=== PATIENT | female | born 1945 | race Caucasian/White ===

== ENCOUNTER 2022-10-26 17:30 | Outpatient (RCR) | payer SELFPAY | END 2022-10-26 23:59 | LOC: NS 17:30 | DX: Z71.3 Dietary counseling and surveillance (principal) ==

== ENCOUNTER 2023-07-30 11:00 | Outpatient (RCR) | payer MEDICARE, SELFPAY ==
--- NOTE | 2023-06-15 16:10 | HP.PTEVAL_ITS ---
Patient's Visit Information Visit Information Visit Information: ADRIANA TAPIA is a 77 year old F referred to Physical Therapy by SARAHI CORONEL with a diagnosis of Cervicalgia, dorsalgia. Date of Evaluation: 06/11/23 Physical Therapist: Micah Espinoza DPT Visit Plan Frequency: 1-2x /Week Duration: 6 Weeks Plan: 1) cervical joint mobilizations both PAs and UPA for rotation. 2) UT and levator scap stretching 3) cervical retraction and PT assisted rectraction 4) scapular strengthening. Subjective Subjective: Pt. is here today for her initial evaluation with diagnosis of cervicalgia and dorsalgia. Pt. reports having increased pain for a number of years. She has been going to Pt for massage with some good success. Pt. reports increased neck pain with rotation and looking up. She reports falling asleep and walking up with intense pain, but has already started to alleviate. She is still having issues both with ROM and reports of muscle tightness. Pt. denies N/T in either UE. No myotomal weakness noted. No changes in vision. Pt. has had xrays but not in a while. Xrays showed a straightening of her cervical lordosis. Pt. is sleeping okay, but has most of her issues during the day. 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 Pt. is hopeful to reduce symptoms in order to get back to all recreational activities without limitation. Pain B side of cervical spine: Pain Intensity (Out of 10): 2 Pain Intensity Range: 0 and 3 Objective Objective: POSTURE: Pt. has forward head, and increased thoracic kyphosis. Pt. is able to correct, but difficulty maintaining. PALPATION: Pt. has tenderness throughout B cervical erector spinae. Pt. has tenderness in B UT region as well. NEURO: normal throughout, normal DTR normal sensation. ROM: cervical spine: flexion mod loss increase NW, ext mod loss increase NW, rotation mod loss bilat increase NW, SB mod loss bilat increase NW. Pt. reports greatest amount of tightness with B cervical rotation and with extension. MMT: 5-/5 throughout BUEs, 5/5 cervical iso testing. Special Tests C/S Radiculapathy - Left Spurlings: Negative C/S Radiculapathy - Right Spurlings: Negative C/S Radiculapathy - Left Cervical distraction: Negative C/S Radiculapathy - Right Cervical distraction: Negative Cervical Sitting: Protrusion - Mechanical Response: No effect Cervical Sitting: Protrusion - Symptoms During Testing: No effect Cervical Sitting: Protrusion - Symptoms After Testing: No effect Cervical Sitting: Retraction - Mechanical Response: No effect Cervical Sitting: Retraction - Symptoms During Testing: No effect Cervical Sitting: Retraction - Symptoms After Testing: No effect Cervical Sitting: Retraction-Extension - Mechanical Response: No effect Cerv Sitting: Retraction-Extension - Symptoms During Testing: No effect Cerv Sitting: Retraction-Extension - Symptoms After Testing: No effect Cervical Sitting: Sidebend Right - Mechanical Response: No effect Cervical Sitting: Sidebend Right - Symptoms During Testing: Increases Cervical Sitting: Sidebend Right - Symptoms After Testing: No worse Cervical Sitting: Sidebend Left - Mechanical Response: No effect Cervical Sitting: Sidebend Left - Symptoms During Testing: Increases Cervical Sitting: Sidebend Left - Symptoms After Testing: No worse Cervical Sitting: Rotation Right - Mechanical Response: No effect Cervical Sitting: Rotation Right - Symptoms During Testing: Increases Cervical Sitting: Rotation Right - Symptoms After Testing: No worse Cervical Sitting: Rotation Left - Mechanical Response: No effect Cervical Sitting: Rotation Left - Symptoms During Testing: Increases Cervical Sitting: Rotation Left - Symptoms After Testing: No worse Cervical Sitting: Flexion - Mechanical Response: No effect Cervical Sitting: Flexion - Symptoms During Testing: Increases Cervical Sitting: Flexion - Symptoms After Testing: No worse Cervical Lying: Retraction - Mechanical Response: No effect Cervical Lying: Retraction - Symptoms During Testing: Increases Cervical Lying: Retraction - Symptoms After Testing: No worse Cervical Lying: Extension - Mechanical Response: No effect Cervical Lying: Extension - Symptoms During Testing: Increases Cervical Lying: Extension - Symptoms After Testing: No worse Balance/Special Test Scores Oswestry Neck Score: 20 Goals Goal 1:: LTG: pt. to be I with HEP for cervical ROM and scapular strengthening. Goal Time Frame: 2-4 Weeks Goal 2:: STG: pt. to have increased cervical ROM by 25% in all directions. Goal Time Frame: 2-4 Weeks Goal 3:: LTG: pt. to complete all cervical rotation during driving without limitations allowing for safe driving. Goal Time Frame: 4-6 Weeks Goal 4:: LTG: pt. to be able to maintain proper posture of thoracic and cervical spine throughout PT session. Goal Time Frame: 4-6 Weeks Rehabilitation Potential Physical Therapy Diagnosis: Pt. has signs and symptoms consistent with cervicalgia/dorsalgia. Pt. has signs and symptoms consistent mostly with hypomobility of her cervical spine. I would like to work on cervical and thoracic joint mobility as well as stretching the corresponding soft tissue. Pt. would benefit from PT to address the above limitations. Rehabilitation Potential: Good Anticipated Interventions Patient/Client Instruction: Educate patient on: Condition, Plan of Care, Risk Factors and Benefits of Fitness Program For the Purpose of:: To foster healthy habits, To improve decision making, To facilitate caregiver knowledge, To improve self management, To prevent re-injury and To improve ability to perform tasks related to life management Therapeutic Exercise to Include: Strength training, Power training, Body mechanics, Postural training, Flexibilty training, Passive ROM, Active ROM, Grant Exercises and Scapular Strength/Stabilization For the Purpose of:: To decrease pain, To increase ROM, To improve nutrient delivery to tissue, To increase oxygenation perfusion, To improve muscle performance and motor function, To improve health of tissue, To decrease soft tissue restriction and To increase flexibility/ROM Manual Therapy Techniques to Include: Mobilization and Passive ROM For the Purpose of:: To decrease pain, To decrease swelling/inflammation, To increase ROM, To improve nutrient delivery to tissue, To increase oxygenation perfusion and To improve muscle performance and motor function Text: Thank you for the opportunity to evaluate your patient. For Medicare and Medicare HMO plans, please review the plan of care and approve it. It will need to be FAXED BACK to us at [phone] for Medicare purposes. For Medicare only, by signing this I certify the plan of care. Please let me know if there are questions or concerns regarding this plan of care. Physician Signature: Date:
--- NOTE | 2023-07-09 11:22 | HP.PTREVAL_ITS ---
Re-Evaluation Intro: SARAHI CORONEL, It has been my pleasure to treat ADRIANA TAPIA over the last 5 visits for Cervicalgia, dorsalgia. Please see the progress note below for an update on the physical therapy plan of care! Subjective Subjective: Pt reports some mild soreness in the L side of her neck, has been doing her HEP as much as possible. Objective Objective/Function: ROM: cervical - R rotation 100%, L rotation 90% with stretch, 100% flex, 80% ext, L LSB 50%, R LSB 75% shoulder - WNL POSTURE: slight FHP, introduced pec stretch HEP: added cervical rotation with OP, seated pec stretch, UT active release >Pt has demo'd improvements with tolerance and understanding of HEP, pt to trial ex/stretches on her own for a few weeks and then will come back for re- assessment of sxs and progress ex as needed. Plan Plan Plan: *Pt to come back in 3 weeks and check in with HEP and severity of exercises 1) cervical joint mobilizations both PAs and UPA for rotation. 2) UT and levator scap stretching 3) cervical retraction and PT assisted rectraction 4) scapular strengthening. Balance/Gait/Functional tests Balance/Special Test Scores Oswestry Neck Score: 20 Goals Goals Goal 1:: LTG: pt. to be I with HEP for cervical ROM and scapular strengthening. Goal Time Frame: 2-4 Weeks Goal Progress: Goal Met Goal 2:: STG: pt. to have increased cervical ROM by 25% in all directions. Goal Time Frame: 2-4 Weeks Goal Progress: Progressing Goal 3:: LTG: pt. to complete all cervical rotation during driving without limitations allowing for safe driving. Goal Time Frame: 4-6 Weeks Goal Progress: Goal Met Goal 4:: LTG: pt. to be able to maintain proper posture of thoracic and cervical spine throughout PT session. Goal Time Frame: 4-6 Weeks Goal Progress: Goal Met Anticipated Interventions Anticipated Interventions Patient/Client Instruction: Educate patient on: Condition, Plan of Care, Risk Factors and Benefits of Fitness Program For the Purpose of:: To foster healthy habits, To improve decision making, To facilitate caregiver knowledge, To improve self management, To prevent re-injury and To improve ability to perform tasks related to life management Therapeutic Exercise to Include: Strength training, Power training, Body mechanics, Postural training, Flexibilty training, Passive ROM, Active ROM, Grant Exercises and Scapular Strength/Stabilization For the Purpose of:: To decrease pain, To increase ROM, To improve nutrient delivery to tissue, To increase oxygenation perfusion, To improve muscle performance and motor function, To improve health of tissue, To decrease soft tissue restriction and To increase flexibility/ROM Manual Therapy Techniques to Include: Mobilization and Passive ROM For the Purpose of:: To decrease pain, To decrease swelling/inflammation, To increase ROM, To improve nutrient delivery to tissue, To increase oxygenation perfusion and To improve muscle performance and motor function Re-Evaluation Ending Re-evaluation ending: Please do not hesitate to contact me at [phone] by phone or if you have questions or concerns regarding this new plan of care! Sincerely, Micah Espinoza DPT
== END 2023-07-30 19:00 | disposition home or self-care (01) ==
LOC: PT 11:00
PROVIDERS: PCP Internal Medicine
DX: M54.2 Cervicalgia (principal)
CPT/HCPCS: 97110; 97140; 97161; 97530

== ENCOUNTER → 2024-01-13 | Outpatient (CLI) | payer MEDICARE, SELFPAY ==
--- NOTE | 2024-01-13 09:22 | BI_ITS ---
MAMMOGRAPHY - BILATERAL SCREENING REASON FOR EXAM: Female, 78 years old. Routine annual screening examination. PERTINENT HISTORY: Mother with breast cancer. TECHNIQUE: Digital bilateral breast keren (3D mammographic acquisition) in the CC and MLO projections. 2-D mediolateral oblique (MLO) and craniocaudad (CC) views of both breasts were obtained. CAD: Full Field Digital Mammography with Computer Added Detection was performed. COMPARISON: Comparison is made with prior outside examination January 05, 2023. FINDINGS: Breast Composition: There are scattered areas of fibroglandular density. There are no dominant masses or suspicious calcifications. No other significant abnormalities are identified. There has been no significant change since the prior study. BI/SCRN MAMM (CAD)W/KEREN BILAT IMPRESSION: Stable bilateral screening mammogram. Yearly follow-up mammogram recommended. (A) ASSESSMENT CATEGORY: BIRADS Category 1: Negative. A letter regarding these results will be sent to the patient by the facility within 30 days. Approximately 10% of breast cancers are not detected by mammography. A normal mammogram should not delay biopsy of a clinically suspicious abnormality. [id number] Electronically Signed: Mick Garber MD at 10:15 EDT ,
== END | disposition home or self-care (01) ==
LOC: OPBI 09:22
PROVIDERS: PCP Internal Medicine; Referring Provider Internal Medicine; Visit Provider Internal Medicine
DX: Z12.31 Encounter for screening mammogram for malignant neoplasm of breast (principal)
CPT/HCPCS: 77063; 77067

== ENCOUNTER 2024-06-05 10:30 | Outpatient (RCR) | payer MEDICARE, SELFPAY ==
--- NOTE | 2024-05-03 13:44 | HP.PTEVAL ---
Patient's Visit Information Visit Information Visit Information: ADRIANA TAPIA is a 78 year old F referred to Physical Therapy by Dr. Lo Ray MD with a diagnosis of ARTHRITS R HIP, NUMBNESS RLE AND WEAKNESS RLE. Date of Evaluation: 05/03/24 Physical Therapist: Karen Cueva, PT, Cert MDT Visit Plan Frequency: 2x /Week Duration: 4-6 Weeks Plan: PATIENT HAS ADHD AND NEEDS WRITTEN HEP INSTRUCTIONS. FOCUS ON CORE AND MICHAEL HIP (R>L) STRENGTH AND STABILITY ALONG WITH HIP (R>L) MOBILITY WITH GENTLE STRETCHING IN REDUCED WEIGHTBEARING ENVIRONMENT AND TRACTION IN THE WATER. KEEP HEP IN COMFORTABLE RANGE AND INTENSITY. Subjective Subjective: Work/Leisure: RETIRED. Present symptoms: R HIP PAIN. MICHAEL LOW BACK PAIN. INTERMITTENT R THIGH AND LEG PAIN. DENIES L THIGH AND LEG PAIN. CONSTANT MICHAEL FOOT TINGLING THAT PATIENT RELATES TO NEUROPATHY AND PATIENT DENIES MICHAEL LE NUMBNESS AND TINGLING OTHERWISE. Present since: END OF JAN 2024 OR MAYBE DEC 2023 Pain Scale: WORST 8/10, LEAST 0/10 Currently: 0/10 Is it getting better, worse or staying the same: GETTING WORSE Commenced as a result of: NO APPARENT REASON Symptoms at onset: R LEG WEAKNESS STARTED - DRAGGING R LEG WHILE WALKING Worse: WEIGHT BEARING ON R LE, TURNING IN BED, GETTING INTO THE CAR, PUTTING R SHOE/SOCK ON, WALKING BARE FOOT, RISING FROM SITTING, STANDING ON CEMENT. PATIENT REPORTS TWO WEEKS AGO WHEN SHE STARTED TRYING EX'S HER DAUGHTER GAVE HER HER BACK STARTED HURTING AND THEN SHE COULD BARELY GET AROUND - SHE DESCRIBES A PIRIFORMIS TYPE STRETCH. Better: SIT DOWN - GET OFF OF IT. ANTI-INFLAMMATORY - TYLONOL ARTHRITIS Disturbed sleep: YES Previous history/Previous treatment: NO R HIP SURGERY. NO R HIP INJECTIONS. PATIENT DENIES ANY HISTORY OF R LE PROBLEMS PRIOR TO THE fall. PATIENT REPORTS HISTORY OF CHRONIC LOW BACK PAIN TREATED WITH MASSAGE AND ELECTRICAL STIM WITH A PT EVERY TWO WEEKS FOR 8 YEARS. NO LOW BACK SURGERY OR INJECTIONS. Treatment this episode: NO TREAMENT. HAS HAD CONSULTS WITH DR. KATZ, A FRAME TABLE OPERATOR IN [place], DR RAY. CONSULT PENDING WITH DR. TEMPLE WEDNESDAY AND ANOTHER DOCTOR BUT SHE INS'T SURE WHAT KIND OF DOCTOR. Coughing/sneezing/straining: PATIENT DENIES INCREASED PAIN WITH COUGHING AND SNEEZING. Gait: USING CANE AT ALL TIMES NOW. ONE STEP INTO HOUSE. LIV[facility] IN [facility]. Bowel or Bladder Dysfunction: WEARS A PANTY LINER FOR URINARY LEAKING. Accidents: NO Unexplained weight loss: NO Imaging: NCT - NORMAL PER PATIENT REPORT. NO MRI. R HIP X-RAY SHOWING CONSIDERABLE ARTHRITS COMPARED TO THE L HIP PER PATIENT REPORT. PATIENT DOES NOT RECALL HAVING LOW BACK X-RAYS. PMH/Recent major surgery: NEUROPATHY. CHRONIC NECK PAIN. HTN. GERD. ADHD. FALL AND TEAR OF R MENISCUS BEFORE 2019 AND R ANKLE SPRAIN 2019. Objective Objective: Standing Posture: R SHLD LEVEL LOWER THAN L. L ILIAC CREST HIGHER THAN R. ANTERIOR PELVIC TILT. DECREASED LORDOSIS. INCREASED TRUNK FLEXION. NO RELEVANT LATERAL LUMBAR SHIFT. Other Observations: THIS PATIENT AMBULATES INDEP'LY INTO PT WITH A ST CANE LIMPING ON HER R LE AND USING A STEP TO GAIT PATTERN WITH INCREASED TRUNK FLEXION AND DECREASED CADANCE. SHE IS ABLE TO TRANSFER INDEP'LY FROM SIT TO STAND WITHOUT UE ASSIST BUT BEARS MOST OF HER WT ON HER LLE. TOE GRIPPING DURING GAIT AND MICHAEL FOOT PRONATION. Sensory deficit: MICHAEL LE GROSSLY INTACT AND SYMMETRICAL EXCEPT ALTERED SENSATION DESCRIBED IN FEET. ROM deficit: MICHAEL HIP FLEXOR, HS AND CALF TIGHTNESS. MICHAEL HIP ROTATION TIGHTNESS WITH R HIP IR/ER TIGHNESS SIGNIFICANTLY MORE THAN L AND WITH ERP. PATIENT ALSO WITH DECREASED R HIP FLEXION IN ADDITION TO ROTATION COMPARED TO L MAKING ADL'S SUCH DRESSING/PUTTING SHOES AND SOCKS ON R LE DIFFICULT. Motor deficit: R HIP 3+ TO 4-/5, R KNEE 4/5, R ANKLE 4/5. L HIP 4/5, L KNEE 5/5, L ANKLE 5/5. Reflexes: MICHAEL QUADS 2+, MICHAEL ACHILLES - ABSENT. Dural Signs: NEGATIVE MICHAEL LE'S. Lumbar mvmt loss: flex - NIL - NE ext - PURA - INCREASES LBP - NW R SG - MOD - NE L SG - MOD - NE PATIENT DENIES INCREASED R LE SX'S WITH LUMBAR ROM TESTING. OTHER: SLS WITHOUT UE ASSIST L = 8 SEC, R = 3 SEC. TANDEM STANCE MICHAEL IS UNSTEADY WITH ARMS FLAILING AND TANDEM WALKING IS UNSAFE. PATIENT MOVING IMPULSIVELY AT TIMES WITH TESTING AND DENYING PAIN DURING TEST BUT THEN C/O PAIN AFTER. Core strength: FAIR Palpation: INCREASED MUSCLE TONE MICHAEL PARASPINALS. TENDERNESS R GREATER TROCH REGION. NO ACUTE LUMBAR OR SACRAL REGION TENDERNESS. Balance/Special Test Scores Lower Extremity Functional Score: 28 Goals Goal 1:: PATIENT WILL HAVE LLE ROM SYMMETRICAL WITH RLE TO EASE ADL'S Goal Time Frame: 6-8 Weeks Goal 2:: PATIENT WILL HAVE INCREASED RLE STRENGTH TO 5/5 THROUGHT ALLOWING FOR INCREASED STABILITY WITH ALL GAIT ACTIVITIES. Goal Time Frame: 6-8 Weeks Goal 3:: PATIENT WILL HAVE NORMAL GAIT PATTERN WITHOUT USE OF AD ON LEVEL SURFACES. Goal Time Frame: 6-8 Weeks Goal 4:: PATIENT WILL BE ABLE TO NEGOTIATE STEPS WITH 1 HR WITH RECIPROCAL PATTERN WITHOUT LIMITATIONS. Goal Time Frame: 6-8 Weeks Goal 5:: PATIENT TO REPORT 2/10 BACK AND R LE PAIN OR LESS WITH ALL ACTIVITIES. Goal Time Frame: 6-8 Weeks Goal 6:: PATIENT WILL BE INDEP WITH LE ROM AND STRENGTHING HEP AND/OR WATER EX PROGRAM. Goal Time Frame: 6-8 Weeks Rehabilitation Potential Physical Therapy Diagnosis: CORE AND MICHAEL LE WEAKNESS AND STIFFNESS R LE > L LIMITING GAIT AND ADL'S. Rehabilitation Potential: Good Anticipated Interventions Patient/Client Instruction: Educate patient on: Condition, Plan of Care and Risk Factors For the Purpose of:: To improve self management Therapeutic Exercise to Include: Strength training, Body mechanics, Postural training, Flexibilty training, Gait and locomotor training, Neuromotor development and In an aquatic setting For the Purpose of:: To decrease pain, To improve muscle performance and motor function, To improve ability to perform ADL's, To increase tolerance to activity/condition/position, To improve ability of physical actions for home/community/work/leisure, To improve gait and locomotor functions, To increase flexibility/ROM and To improve self management Text: Thank you for the opportunity to evaluate your patient. For Medicare and Medicare HMO plans, please review the plan of care and approve it. It will need to be FAXED BACK to us at [phone] for Medicare purposes. For Medicare only, by signing this I certify the plan of care. Please let me know if there are questions or concerns regarding this plan of care. Physician Signature: Date:
--- NOTE | 2024-06-05 12:17 | HP.PTDCSUM ---
Discharge Summary D/C summary: It has been my pleasure to treat ADRIANA TAPIA referred by Dr. Lo Ray MD, with the diagnosis of ARTHRITS R HIP, NUMBNESS RLE AND WEAKNESS RLE for a total of 9 visit(s). Discharge Date: 06/05/24 Please see the following information for a summary of their discharge status. Subjective Subjective: PATIENT REPORTS SHE HAD A CORTISONE SHOT Wednesday09/01/24. BUSY WEDNESDAY MAKING A BIRTHDAY CAKE, WENT TO [employer] AND [employer] TOO. WEDNESDAY WENT TO [employer]. FELT A LITTLE BETTER EACH DAY AND NOTICED SHE GRADUALLY STARTED USING CANE LESS AND LESS. NOW WALKS AWAY FROM CANE AND FORGETS IT AT TIMES. R HIP PAIN COMES AND GOES NOW. BACK PAIN COMES AND GOES BUT CAN'T REMEMBER THE LAST TIME HER BACK HURT. Pain R hip: Pain Intensity (Out of 10): 2 Overall Improvement % Improvement: 80 Objective Objective/Function: PATIENT WAS SEEN TODAY FOR RE-ASSESSMENT OF PROGRESS TOWARD THE SET PT GOALS AND THE NEED FOR FURTHER PHYSICAL THERAPY VS READINESS FOR DISCHARGE. THIS PATIENT IS DOING MUCH BETTER SINCE RECENT CORTISONE SHOT BUT STILL HAS ABNORMAL GAIT PATTERN, R HIP TIGHTNESS AND WEAKNESS. SHE IS A GOOD CANDIDATE TO CONTINUE PT BUT WOULD LIKE TO TAKE A BREAK FROM PT DUE TO FEELING SO MUCH BETTER, ANXIETY AND PT CAUSING INCREASED GENERALIZED ARTHRITIC PAIN. UPON EXAM TODAY: THIS PATIENT AMBULATES INDEP'LY INTO PT WITH A STRAIGHT CANE, STEP THROUGH GAIT PATTERN AND MILD LIMP ON THE R LE. SHE IS MUCH LESS DEPENDENT ON THE CANE TODAY (USING CANE LITTLE TO NONE) THAN PREVIOUS OBSERVATIONS AND LLE STRIDE LENGTH HAS INCREASED. ROM deficit: MICHAEL HIP FLEXOR, HS AND CALF TIGHTNESS. MICHAEL HIP ROTATION TIGHTNESS WITH R HIP IR/ER TIGHNESS SIGNIFICANTLY MORE THAN L AND WITH ERP. PATIENT ALSO WITH DECREASED R HIP FLEXION IN ADDITION TO ROTATION COMPARED TO L MAKING ADL'S SUCH DRESSING/PUTTING SHOES AND SOCKS ON R LE DIFFICULT HOWEVER THIS IS SIGNIFICANTLY IMPROVED SINCE THE CORTISONE SHOT. SHE NOW HAS MINIMAL R HIP FLEXION MVMT LOSS AND MINIMAL FLEX ERP BUT R HIP IR MVMT LOSS IS STILL SIGNIFICANT AND PATIENT HAS C/O PAIN AT THE END OF THE AVAILABLE ROM WITH TESTING. Motor deficit: R HIP 4- R KNEE 4/5, R ANKLE 4/5. L HIP 4/5, L KNEE 5/5, L ANKLE 5/5. OTHER: SLS WITHOUT UE ASSIST L > 20 SEC, R = > 20 SEC. TANDEM STANCE - INDEP MICHAEL TANDEM WALKING - INDEP WITHOUT UE ASSIST. Palpation: INCREASED MUSCLE TONE MICHAEL PARASPINALS. NO ACUTE LUMBAR, BUTTOCK OR HIP TENDERNESS. STEPS: PATIENT IS ABLE TO GO UP STEPS RECIPROCALLY WITH CANE AND ONE HR BUT WITH DIFFICULTY AND WEAKNESS EVIDENT. STAIR TRAINING FOR ONE STEP AT A TIME WITH ONE HR AND CANE. Goals Goal 1:: PATIENT WILL HAVE LLE ROM SYMMETRICAL WITH RLE TO EASE ADL'S Goal Progress: Progressing Goal 2:: PATIENT WILL HAVE INCREASED RLE STRENGTH TO 5/5 THROUGHT ALLOWING FOR INCREASED STABILITY WITH ALL GAIT ACTIVITIES. Goal Progress: Progressing Goal 3:: PATIENT WILL HAVE NORMAL GAIT PATTERN WITHOUT USE OF AD ON LEVEL SURFACES. Goal Progress: Progressing Goal 4:: PATIENT WILL BE ABLE TO NEGOTIATE STEPS WITH 1 HR WITH RECIPROCAL PATTERN WITHOUT LIMITATIONS. Goal 5:: PATIENT TO REPORT 2/10 BACK AND R LE PAIN OR LESS WITH ALL ACTIVITIES. Goal Progress: Progressing Goal 6:: PATIENT WILL BE INDEP WITH LE ROM AND STRENGTHING HEP AND/OR WATER EX PROGRAM. Goal Progress: Progressing Plan Plan: D/C AT PATIENTS REQUEST. D/C Information d/c sentence: If there are questions or concerns regarding this patient's physical therapy, please feel free to call me at [phone]. Thank you for the referral of this patient. Sincerely, Karen Cueva, PT, Cert MDT Balance/Gait/Functional tests Balance/Special Test Scores Lower Extremity Functional Score: 52 Improvement % Improvement: 80
== END 2024-06-05 15:00 | disposition home or self-care (01) ==
LOC: PT 10:30
PROVIDERS: PCP Internal Medicine; Referring Provider Orthopaedic Surgery; Visit Provider Orthopaedic Surgery
DX: M13.851 Other specified arthritis, right hip (principal); M62.81 Muscle weakness (generalized); R20.0 Anesthesia of skin
CPT/HCPCS: 97113; 97162; 97530

== ENCOUNTER → 2025-02-08 | Outpatient (CLI) | payer MEDICARE, SELFPAY ==
--- NOTE | 2025-02-08 09:55 | BD_ITS ---
PROCEDURE: DEXA BONE DENSITY STUDY 02/08/2025 REASON FOR EXAM: F, age 79 y/o . Postmenopausal. TECHNIQUE: Procedure Code: BDDBD Modality: DX Procedure: DEXA BONE DENSITY STUDY COMPARISON: None FINDINGS: BMD and T-SCORES Lumbar spine: 1.201 g/cm2, T-score 1.5 Levels: L1 through L4 Left femoral neck: 0.757 g/cm2, T-score -0.8 Femoral neck comparison data not recommended for monitoring change. Left total hip: 0.920 g/cm2, T-score -0.2 The World Health Organization has defined the following categories based on bone density: Normal bone density: T-score equal to or greater than -1.0 Osteopenia: T-score between -1.0 and -2.5 Osteoporosis: T-score equal to or less than -2.5 FRAX (or Comparable) Fracture Risk Assessment: 10 Year Probability of Fracture: Major Osteoporotic Fracture: 16% Hip Fracture: 2.8% (Note: FRAX is not to be reported in setting of normal range bone density, osteoporosis on DEXA, known history of osteoporosis, prior osteoporotic hip or vertebral fracture, or for any patient undergoing pharmacological treatment for bone loss.) The National Osteoporosis Foundation (NOF) recommends pharmacological treatment for patients with a FRAX 10-year risk of 3% or higher for a hip fracture, or 20% or higher for a major osteoporotic fracture, to prevent osteoporosis and reduce fracture risk. The patient does meet the pharmacological treatment recommendations for prevention of osteoporosis. BD/Dexa Bone Density Study IMPRESSION: NORMAL T-SCORES. Recommend follow-up as clinically warranted. Reading Location: [place] [id number]
--- NOTE | 2025-02-08 09:55 | BI_ITS ---
EXAM: SCRN MAMM (CAD)W/KEREN BILAT DATE: 02/08/2025 CLINICAL HISTORY: F, Age 79 y/o , SCREENING Mother with breast cancer. TECHNIQUE: Procedure Code: [id number] Modality: MG Procedure: SCRN MAMM (CAD)W/KEREN BILAT COMPARISON: Prior exam(s) dated January 13, 2024.. FINDINGS: TISSUE DENSITY: The breasts are heterogeneously dense, which may obscure small masses. Bilateral Breast Mammographic Findings: No significant masses, calcifications or other abnormalities are identified. No suspicious masses, areas of developing architectural distortion, or suspicious calcifications. There has been no significant interval change. BI/SCRN MAMM (CAD)W/KEREN BILAT IMPRESSION: Stable bilateral screening mammogram. OVERALL FINAL ASSESSMENT BI-RADS 1: NEGATIVE. RECOMMENDATION: Routine annual follow-up in 1 Year Additional Recommendation none A letter with findings and recommendations will be mailed to the patient. Reading Location: [place] [address]
== END | disposition home or self-care (01) ==
LOC: OPBD 09:54
PROVIDERS: PCP Internal Medicine; Referring Provider Internal Medicine; Visit Provider Internal Medicine
DX: Z12.31 Encounter for screening mammogram for malignant neoplasm of breast (principal); Z78.0 Asymptomatic menopausal state
CPT/HCPCS: 77063; 77067; 77080

== ENCOUNTER 2025-03-02 11:00 | Outpatient (RCR) | payer MEDICARE, SELFPAY ==
--- NOTE | 2025-02-01 12:02 | HP.PTEVAL ---
Patient's Visit Information Visit Information Visit Information: ADRIANA TAPIA is a 79 year old F referred to Physical Therapy by Dr. Krishna Temple MD with a diagnosis of S/P R THR 01/01/25 DIRECT ANTRIOR APPROACH WBAT. Date of Evaluation: 02/01/25 Physical Therapist: Karen Cueva, PT, Cert MDT Visit Plan Frequency: 2x /Week Duration: 4-6 Weeks Plan: S/P R THR 01/01/25 NO TWISTING ON R LE, NO BENDING AND PICKING ANYTHING UP OFF THE FLOOR. BALANCE AND GAIT TRAINING PROGRESSING WB WITHOUT AD TOLERATED WITH NORMALIZED GAIT ON ALL SURFACES AND UP/DOWN STEPS. SURGICAL SCAR MOBILIZATION LE ROM AND STRENGTHENING WITHIN ANTERIOR APPROACH THR PROTOCOL. Subjective Subjective: THIS PATIENT PRESENTS TO PT S/P R TKR 01/01/[address] TEMPLE WBAT. SHE REPORTS SHE IS WALKING BETTR THAN SHE HAS IN YEARS. SHE STATES SHE WAS RELEASED TO OUT-PATIENT PT BY HOME HEALTH PT LAST Wednesday01/25/25 AND AT THAT TIME SHE WAS PROGRESSING OFF OF HER CANE AND STARTING TO USE THE CANE NEEDED. SHE HAS ONE STEP INTO HER HOUSE THAT SHE IS DOING WITHOUT DIFFICULTY. SHE STATES SHE WILL BE GOING TO HER DAUGHTERS HOUSE FOR THANKSGIVING AND SHE HAS MORE STEPS. PATIENT DENIES ANY COMPLICATIONS WITH THE SURGERY AND REPORTS HER INCISION IS HEALING UP NICELY. CURRENTLY R HIP PAIN IS RANGING 0-2/10. TAKING TYLONOL DAILY. PMH: Hordeolum externum right upper eyelid Carpal tunnel syndrome Hypertension Arthritis Objective Objective: GAIT: THIS PATIENT AMBULATES INDEP'LY INTO PT TODAY WITH INTERMITTENT USE OF A ST CANE, DECREASED CADANCE AND A MILD LIMP ON THE RLE. NO LOB. SHE IS ABLE TO ASCEND AND DESCEND STEPS ONE STEP AT A TIME WITH ONE HR AND CANE WITH CUEING SAFELY. WOMAC score: 16/[address] CANE 30 SEC STS TEST: 7 WITH ONE UE ASSIST AND L LE WT BEARING > R. R knee flexion AROM: 132 DEG. R knee ext AROM: FULL R HIP EXT: MINUS 5 DEG. R HIP FLEX 96 DEG R knee flex MMT: 14.4 LBS, L 22.2 LBS R knee ext MMT 16 LBS, 19.7 LBS R hip MMT 7.5 LBS, L 14.1 LBS. R ankle MMT: MICHAEL ANKLES 5/5 SLS: PATIENT IS ABLE TO SLS WITHOUT UE ASSIST X > 5 SEC EA. TANDEM STANCE: MICHAEL X > 5 SEC EA. Sensory deficit: MICHAEL LE LIGHT TOUCH SENSATION GROSSLY INTACT AND SYMMETRICAL BUT PATIENT REPORTS NEUROPATHY. OTHER: CIRCUMFERENCE MEASUREMENTS AT KNEE ARE SYMMETRICAL - 38.5 CM MICHAEL. Palpation: R LE INCISIONS LOOK GOOD WITHOUT ANY SIGNS OF INFECTION. FAIR INCISION MOBILITY AND MILD EDEMA. R ANKLE TENDERNESS - PATIENT REPORTS ANKLE SPRAIN ABOUT 6 YEARS AGO WITH CHRONIC SWELLING. Balance/Special Test Scores WOMAC Total Score: 16 WOMAC Percentatge: 83.3400 Goals Goal 1:: Pt. will improve R LE strength symmetrical to L LE in order to improve stability and balance. Goal Time Frame: 2-4 Weeks Goal 2:: Pt. will be able to walk at least 30 minutes without AD with 0-1/10 pain and no rest break in order to improve endurance. Goal Time Frame: 2-4 Weeks Goal 3:: Patient will have normalized gait on level surfaces without AD Goal Time Frame: 4-6 Weeks Goal 4:: Pt. will be able to complete at least 15 sit to stands in 30 secs without arm assist in order to demonstrate improved LE functional strength and improve ADL function/tolerance Goal Time Frame: 4-6 Weeks Goal 5:: Pt. will be able to ascend and descend steps reciprocally with one handrail without limitation Goal Time Frame: 6-8 Weeks Goal 6:: Patient will be able to return to all hobbies without limitation except for running/jogging Goal Time Frame: 6-8 Weeks Rehabilitation Potential Physical Therapy Diagnosis: PATIENT HAS SIGNS AND SYMPTOMS CONSISTENT WITH R KEE. SHE HAS SUBSEQUENT HYPOMOBILITY, WEAKNESS, DIFFICULTY WALKING AND PAIN. SHE WOULD BENEFIT FROM PT TO ADDRESS THE ABOVE LIMITATIONS TO PROGRESS BACK TO ALL RECREATIONAL ACTIVITIES WITHOUT LIMITATIONS. Rehabilitation Potential: Excellent Anticipated Interventions Patient/Client Instruction: Educate patient on: Condition, Plan of Care and Risk Factors For the Purpose of:: To improve self management Therapeutic Exercise to Include: Strength training, Endurance training, Flexibilty training, Gait and locomotor training, Neuromotor development and Active ROM For the Purpose of:: To decrease pain, To decrease swelling/inflammation, To increase ROM, To improve muscle performance and motor function, To improve ability to perform ADL's, To increase tolerance to activity/condition/position, To improve ability of physical actions for home/community/work/leisure, To improve gait and locomotor functions, To increase flexibility/ROM, To improve endurance, To improve balance and To improve self management Manual Therapy Techniques to Include: Scar massage Comment: R HIP INCISION For the Purpose of:: To decrease soft tissue restriction Cryotherapy (ice pack, ice massage): Yes For the Purpose of:: To decrease pain and To decrease swelling/inflammation Text: Thank you for the opportunity to evaluate your patient. For Medicare and Medicare HMO plans, please review the plan of care and approve it. It will need to be FAXED BACK to us at [phone] for Medicare purposes. For Medicare only, by signing this I certify the plan of care. Please let me know if there are questions or concerns regarding this plan of care. Physician Signature: Date:
--- NOTE | 2025-03-02 12:58 | HP.PTDCSUM_ITS ---
Discharge Summary D/C summary: It has been my pleasure to treat ADRIANA TAPIA referred by Dr. Krishna Castro MD, with the diagnosis of S/P R THR 01/01/25 DIRECT ANTRIOR APPROACH WBAT for a total of 9 visit(s). Discharge Date: 03/02/25 Please see the following information for a summary of their discharge status. Subjective Subjective: PATIENT REPORTS SHE IS DOING BETTER NOW THAT SHE HAS IN SEVERAL YEARS. SHE STATES SHE NEVER WANTS TO GO BACK TO FEELING LIKE SHE DID BEFORE SURGERY. SHE REPORTS SHE WAS IN HER GARAGE READY TO COME TO PT TODAY AND THEN REALIZED SHE DIDN'T EVEN HAVE HER CANE WITH HER. STATES SHE HAD TO LOOK AROUND TO EVEN FIND IT. STATES SHE CANCELLED HER 6 WK FOLLOW UP WITH THE SURGEON BECAUSE THE SURGEON TOLD HER SHE DIDN'T NEED TO COME IF SHE DIDN'T FEEL SHE NEEDED IT. AT THIS POINT SHE STATES SHE IS JUST TO GO BACK TO THE SURGEON NE EDED. SHE REPORTS SHE HAS CONTINUED HER HEP. DENIES ANY FALLS. REPORTS SHE WENT TO HER DAUGHTERS AT [facility] AND DID A FULL FLIGHT OF STEPS WITH NO PROBLEM. REPORTS AT LEAST 75% IMPROVEMENT BECAUSE IT FEELS STIFFER SINCE IT HAS TURNED COLD AND SHE CAN'T GET OUT AND WALK. Pain R hip: Pain Intensity (Out of 10): 0 bilat SH: Pain Intensity (Out of 10): 0 Overall Improvement % Improvement: 75 Objective Objective/Function: PATIENT WAS SEEN TODAY FOR RE-ASSESSMENT OF PROGRESS TOWARD THE SET PT GOALS AND THE NEED FOR FURTHER PHYSICAL THERAPY VS READINESS FOR DISCHARGE. UPON EXAM TODAY: GAIT: THIS PATIENT DEMONSTRATES INDEP AND SAFE AMBULATION ON LEVEL SURFACES WITHOUT AD OR GROSS DEVIATION. SHE IS ABLE TO ASCEND AND DESCEND STEPS RECIPROCALLY WITH ONE LIGHT HR WITH MILD DIFFICULTY LEADING UP WITH R LE. WOMAC score: 9 TU.55 SEC WITHOUT AD. 30 SEC STS TEST: 11 WITHOUT UE ASSIST (AND NO FOAM ON CHAIR) R knee flexion AROM: 145 DEG. R knee ext AROM: FULL R HIP EXT: +5 DEG R HIP FLEX 115 DEG R knee flex MMT: 23.6 LBS, L 22.2 LBS R knee ext MMT 27.8 LBS, 30.3 LBS R hip MMT 22.2 LBS, L 21.7 LBS. R ankle MMT: MICHAEL ANKLES 5/5 SLS: PATIENT IS ABLE TO SLS WITHOUT UE ASSIST X > 10 SEC EA. TANDEM STANCE: MICHAEL X > 5 SEC EA. Sensory deficit: MICHAEL LE LIGHT TOUCH SENSATION GROSSLY INTACT AND SYMMETRICAL BUT PATIENT REPORTS NEUROPATHY. OTHER: INCISION LOOKS GOOD WITH GOOD MOBILITY. Goals Goal 1:: Pt. will improve R LE strength symmetrical to L LE in order to improve stability and balance. Goal Progress: Progressing Goal 2:: Pt. will be able to walk at least 30 minutes without AD with 0-1/10 pain and no rest break in order to improve endurance. Goal Progress: Progressing Goal 3:: Patient will have normalized gait on level surfaces without AD Goal Progress: Goal Met Goal 4:: Pt. will be able to complete at least 15 sit to stands in 30 secs without arm assist in order to demonstrate improved LE functional strength and improve ADL function/tolerance Goal Progress: Progressing Goal 5:: Pt. will be able to ascend and descend steps reciprocally with one handrail without limitation Goal Progress: Progressing Goal 6:: Patient will be able to return to all hobbies without limitation except for running/jogging Goal Progress: Progressing Plan Plan: D/C. PATIENT AGREEABLE. D/C Information d/c sentence: If there are questions or concerns regarding this patient's physical therapy, please feel free to call me at [phone]. Thank you for the referral of this patient. Sincerely, Karen Cueva, PT, Cert MDT Balance/Gait/Functional tests Balance/Special Test Scores WOMAC Total Score: 9 WOMAC Percentage: 90.2200 Improvement % Improvement: 75
== END 2025-03-02 15:03 | disposition home or self-care (01) ==
LOC: PT 11:00
PROVIDERS: PCP Internal Medicine; Visit Provider Orthopaedic Surgery
DX: M13.851 Other specified arthritis, right hip (principal)
CPT/HCPCS: 97110; 97162; 97530